=== PATIENT | male | born 1975 | race Caucasian/White ===

== ENCOUNTER 2020-11-15 20:21 | Emergency (ER) | payer MEDICAID ==
[~2020-11-15] VITALS: Ht 180.3 cm; Wt 70.3 kg
--- NOTE | 2020-11-15 20:25 | NUR ---
AMBULATED TO BED 5
--- NOTE | 2020-11-15 20:25 | NUR ---
ENCOURAGED PT TO DRINK WATER TO BE ABLE TO GIVE URINE SAMPLE
--- NOTE | 2020-11-15 20:30 | NUR ---
45 Y/O MALE MOODY C/O BEING ON HOLD FOR 5150. PER EMS, "PT HAS BEEN HEARING VOICES THAT IS TELLING HIM TO HURT HIMSELF." PT HAS NO ACTUAL PLAN ON HURTING HIMSELF AT THE MOMENT. PLACED PT ON SUICIDE PRECAUTIONS: -NO HARMFUL OBJECTS IN THE ROOM -BELONGINGS ARE OUTSIDE THE ROOM -PT IS PLACED IN A PT GOWN AND ROOM IS PLACED NEAR THE NURSES' STATION NKA PMH: SCHIZOPHRENIA, BIPOLAR AND MAJOR DEPRESSION DISORDER
--- NOTE | 2020-11-15 20:30 | NUR ---
ENCOURAGED PT TO DRINK WATER TO BE ABLE TO GIVE URINE SAMPLE
[2020-11-15 20:32] VITALS: BP 93/69
--- NOTE | 2020-11-15 20:37 | NUR ---
ERMD AT BEDSIDE.
--- NOTE | 2020-11-15 20:42 | NUR ---
LAB AT BEDSIDE.
--- NOTE | 2020-11-15 20:45 | NUR ---
ENCOURAGED PT TO DRINK WATER TO BE ABLE TO GIVE URINE SAMPLE
[2020-11-15 20:49] LABS: BASOPHILS # (AUTO) 0.1 K/uL (0.00-0.22); BASOPHILS % (AUTO) 1.3 % (0.0-2.0); EOSINOPHILS # (AUTO) 0.2 K/uL (0-0.4); EOSINOPHILS % (AUTO) 2.8 % (0.0-4.0); LYMPHOCYTES # (AUTO) 1.9 K/uL (2.0-11.5); LYMPHOCYTES % (AUTO) 30.6 % (20.5-51.1); MEAN CORPUSCULAR HEMOGLOBIN 28 pg (27-31); MEAN CORPUSCULAR HGB CONC 33 g/dL (33-37); MEAN CORPUSCULAR VOLUME 84.2 fL (80-94); MONOCYTES # (AUTO) 0.8 K/uL (0.8-1.0); MONOCYTES % (AUTO) 12.5 % (1.7-9.3); NEUTROPHILS # (AUTO) 3.3 K/uL (1.8-7.7); NEUTROPHILS % (AUTO) 52.8 % (42.2-75.2); PLATELET COUNT (AUTO) 240 K/uL (140-450); RED BLOOD CELL COUNT(AUTO) 4.63 MIL/uL (4.20-6.10); RED CELL DISTRIBUTION WIDTH 13.7 % (11.6-13.7); WHITE BLOOD COUNT (AUTO) 6.2 K/uL (4.8-10.8)
[2020-11-15 20:55] LABS: ANION GAP 15.5 (8-16); CARBON DIOXIDE 25.4 mmol/L (21-32); CHLORIDE 104 mmol/L (98-107); GFR ARICAN-AMERICAN 46 mL/min (>90); GLUCOSE 140 mg/dL (74-106); POTASSIUM 3.9 mmol/L (3.5-5.1); SODIUM SERUM 141 mmol/L (136-145); UREA NITROGEN, BLOOD 14 mg/dL (7-18)
--- NOTE | 2020-11-15 20:55 | NUR ---
ENCOURAGED PT TO DRINK WATER TO BE ABLE TO GIVE URINE SAMPLE, GAVE 2 CUPS
[2020-11-15 21:00] LABS: ASPARTATE AMINOTRANSFERASE 15 U/L (15-37); TOTAL BILIRUBIN 0.4 mg/dL (0.0-1.0)
[2020-11-15 21:01] LABS: ACETAMINOPHEN < 0.5 ug/ml (10-30); SALICYLATE < 2.8 mg/dL (2.8-20.0)
--- NOTE | 2020-11-15 21:15 | NUR ---
PT AMBULATED TO RESTROOM; STILL NOT ABLE TO GIVE URINE SAMPLE
--- NOTE | 2020-11-15 21:22 | NUR ---
COLLECTED CR AND NOVEL SWABS, HANDED TO CPT KILO
--- NOTE | 2020-11-15 22:00 | NUR ---
ENCOURAGED PT TO DRINK WATER TO BE ABLE TO GIVE URINE SAMPLE; GAVE 2 CUPS OF WATER AND 2 APPLE JUICES
--- NOTE | 2020-11-15 22:00 | NUR ---
ONE TO ONE MONITORING; PT IS ON 5150 HOLD
--- NOTE | 2020-11-15 22:30 | NUR ---
ENCOURAGED PT TO DRINK WATER TO BE ABLE TO GIVE URINE SAMPLE; GAVE A CUP OF WATER
--- NOTE | 2020-11-15 22:45 | NUR ---
PT AMBULATED TO RESTROOM, NOT ABLE TO GIVE URINE SAMPLE
--- NOTE | 2020-11-15 22:56 | NUR ---
PT IS UNABLE TO GIVE URINE AT THE MOMENT, PT IS GETTING AGITATED AND SHOUTING, STATES "STOP FORCING ME TO DRINK". ERMD MADE AWARE.
[2020-11-15] MEDS ORDERED: HALOPERIDOL IM 5 MG/ML VIAL IM ONE (23:20)
[2020-11-15] MEDS ORDERED: LORazepam 1 MG TAB PO ONE (23:20)
--- NOTE | 2020-11-15 23:43 | NUR ---
ATTEMPTED TO ADMINISTER MEDICATION TO PT AT THIS TIME. PT SEEN WITH EYES CLOSED. PT TAPPED ON SHOULDER TO AWAKE HIM AND PT NOT RESPONDING.
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
--- NOTE | 2020-11-16 00:50 | NUR ---
PT CALM AND COOPERATIVE AT THIS TIME. HARD WRIST AND ANKLE RESTRAINTS REMOVED AT THIS TIME.
--- NOTE | 2020-11-16 03:00 | NUR ---
Patient appears to be resting comfortably in bed. Vital Signs within normal limits. Respirations even and unlabored.
--- NOTE | 2020-11-16 05:30 | NUR ---
Pt seen with eyes closed. Visible chest rise and fall noted. 1:[address] Safety measures in place. All needs met at this time. Will continue to monitor.
--- NOTE | 2020-11-16 07:14 | NUR ---
GIVEN REPORT TO MASHA CHAVEZ. TRANSFER OF CARE AT THIS TIME.
--- NOTE | 2020-11-16 09:15 | NUR ---
CR AND NOVEL WAS SWABBED AND GIVEN TO LAB. PT WAS COMPLIANT AND CALM.
--- NOTE | 2020-11-16 12:00 | NUR ---
URINE WAS COLLECTED AND DROPPED OFF AT LAB WITH PHLEB.
--- NOTE | 2020-11-16 12:32 | NUR ---
Packet received for placement Fax to the following facilities [facility]
[2020-11-16 12:44] LABS: BARBITURATE, URINE NEGATIVE ng/ml (NEG <=200)
[2020-11-16 12:45] LABS: BENZODIAZEPINE, URINE NEGATIVE ng/mL (NEG <=200); CANNABINOID, URINE POSITIVE ng/mL (NEG <=50); COCAINE, URINE NEGATIVE ng/mL (NEG <=300); OPIATE, URINE NEGATIVE ng/mL (NEG <=2000); PHENCYCLIDINE SCREEN,URINE NEGATIVE ng/mL (NEG <=25)
--- NOTE | 2020-11-16 13:44 | NUR ---
TELEPSYCH SPEAKING WITH PT AT THIS TIME
[2020-11-16] MEDS ORDERED: BENZTROPINE 1 MG TAB PO PRN (14:15)
--- NOTE | 2020-11-16 16:00 | NUR ---
Patient appears to be resting comfortably in bed. Vital Signs within normal limits. Respirations even and unlabored.
--- NOTE | 2020-11-16 19:12 | NUR ---
Pt report given to TAO FLANAGAN AND ELLA FLANAGAN. Transfer of care at this time.
[2020-11-16] MEDS ORDERED: HALOPERIDOL 5 MG TAB PO SCH (21:00)
--- NOTE | 2020-11-16 21:25 | NUR ---
PT. CALM AND COOPERATIVE AND IS ACTING APPROPRIATELY WITH STAFF. LAYING COMFORTABLY IN BED, VOICES NO COMPLAINTS.
--- NOTE | 2020-11-16 23:43 | NUR ---
PT. IS RESTING IN BED COMFORTABLY WITH EYES CLOSED AND WITH BLANKET HALF COVERING HIS FACE.
--- NOTE | 2020-11-17 01:13 | NUR ---
COVERING PRIMARY RN FOR LUNCH RELIEF. PT SEEN WITH EYES CLOSED. VISIBLE CHEST RISE AND FALL NOTED. 1:1 MONITORING FOR SI PRECAUTION. SAFETY MEASURES IN PLACE. ALL NEEDS MET AT THIS TIME. WILL CONTINUE TO MONITOR.
--- NOTE | 2020-11-17 02:34 | NUR ---
PT. RESTING WITH EYES CLOSED, POSITIONED IN WA[place] POSITION WITH BLANKET COVERING HIS HEAD. BREATHING EVEN AND UNLABORED. WILL CONTINUE TO MONITOR.
--- NOTE | 2020-11-17 06:15 | NUR ---
PT. SITTING UP IN BED AWAKE AND EATING.
--- NOTE | 2020-11-17 07:28 | NUR ---
report recieved from calvin monzon. all cares transferred at this time.
--- NOTE | 2020-11-17 08:41 | NUR ---
Patient sleeping comfortably in bed. Vital Signs within normal limits. Respirations even and unlabored.
--- NOTE | 2020-11-17 10:11 | NUR ---
[facility] received PCR results. Still working on placement at this time.
--- NOTE | 2020-11-17 10:13 | NUR ---
Dr. Nicole is evaluating the patient at bedside.
[2020-11-17] MEDS ORDERED: OLANZapine 5 MG ODT PO SCH (10:15)
--- NOTE | 2020-11-17 10:33 | NUR ---
PATIENT COOPERATIVE IN TAKING ORAL MEDICATIONS
--- NOTE | 2020-11-17 12:40 | NUR ---
Praveen villaseñor in [facility] - 11/17/20 at 1241 by [facility] REPORT CALLED TO JEFRY DESAI
--- NOTE | 2020-11-17 12:41 | NUR ---
REPORT CALLED TO MASHA CAPPS OF [facility], UNIT 2. PT WILL BE GOING TO ROOM 1302-C UNDER DR. SABILLON.
--- NOTE | 2020-11-17 14:38 | NUR ---
[facility] at bedside for transfer.
[2020-11-17 14:39] VITALS: BP 106/78
--- NOTE | 2020-11-17 14:42 | NUR ---
Patient to be transferred to [facility]. Is being transferred due to HIGHER LEVEL OF CARE. Receiving facility has accepting physician and available space. ER physician has signed transfer form. Patient or responsible green party has agreed to transfer and signed form. Patient belongings inventoried and will be sent with patient. Copy of nursing notes, lab reports, EKG, Physicians Orders and X-rays to be sent with patient. Report called to MASHA CAPPS at receiving facility. [facility] ambulance service has been called for transfer. ETA is 1315.
== END 2020-11-17 14:42 ==
LOC: MED 20:21
DX: R44.0 Auditory hallucinations (principal); Z20.822 Contact with and (suspected) exposure to COVID-19; F32.9 Major depressive disorder, single episode, unspecified; F20.9 Schizophrenia, unspecified; F17.210 Nicotine dependence, cigarettes, uncomplicated; F12.90 Cannabis use, unspecified, uncomplicated; F14.90 Cocaine use, unspecified, uncomplicated; Z98.890 Other specified postprocedural states
CPT/HCPCS: 36415; 80053; 80305; 85025; 87426; 96372; 99285; G0480; G0482; J1630; U0003

== ENCOUNTER 2020-11-30 23:20 | Emergency (ER) | payer MEDICAID ==
[~2020-11-30] VITALS: Ht 180.3 cm; Wt 72.6 kg
--- NOTE | 2020-11-30 23:24 | NUR ---
PT AMBULATORY TO LOBBY TO A/W BED.
[2020-11-30 23:25] VITALS: BP 112/72
--- NOTE | 2020-11-30 23:50 | NUR ---
RECEIVED IN BED 4 AFTER BEING BIBA , ETOH. PT STATES, I WAS TWITCHING AND HEARING VOICES. IS ALERT AND ORIENTED. PT IS HOMELESS AND SAYS HIS FEET ARE HURTING FROM WALKING SO MUCH UNKNOWN PMH NKDA
--- NOTE | 2020-12-01 00:39 | NUR ---
Dr. Mckeon at bedside for evaulation
[2020-12-01 01:06] VITALS: BP 112/72
--- NOTE | 2020-12-01 01:06 | NUR ---
Patient discharged with v/s stable. Written and verbal after care instructions given and explained. Patient verbalized understanding. Ambulatory with steady gait. All questions addressed prior to discharge. Advised to follow up with PMD.
== END 2020-12-01 01:06 | disposition home or self-care (01) ==
LOC: MED 23:20
DX: F10.129 Alcohol abuse with intoxication, unspecified (principal)
CPT/HCPCS: 99283